=== PATIENT | male | born 1950 | race Caucasian/White ===

== ENCOUNTER 2017-06-17 15:46 | Emergency (ER) | payer MEDICAID ==
[2017-06-17 16:06] VITALS: BP 144/94
[2017-06-17] MEDS ORDERED: Bacitracin Oint 1 GM U/D Packet TOP ONE (16:35)
--- NOTE | 2017-06-17 16:40 | EDM.PDOC ---
ED HPI GENERAL MEDICAL PROBLEM - General Chief Complaint: Upper Extremity Injury/Pain Stated Complaint: FELL OFF LADDER Time Seen by Provider: 06/17/17 16:30 Source of Information: Reports: Patient History Limitations: Reports: No Limitations - History of Present Illness INITIAL COMMENTS - FREE TEXT/NARRATIVE: 66-year-old male was standing on a ladder cleaning out an air duct when he fell off striking the right side of his head on the ground and sustaining a left shoulder injury. He did not lose consciousness, he has an abrasion on his nose but a laceration over his right eyebrow he is concerned about. He also has some soreness in the deep left shoulder to movement. No other injury. No shortness of breath, chest wall pain, back pain, or other extremity injury. Onset: Sudden Duration: Hour(s): (Within the last few hours) Location: Reports: Face, Upper Extremity, Left Severity: Moderate Associated Symptoms: Denies: Fever/Chills, Headaches, Nausea/Vomiting, Syncope Left Shoulder Pain Score (Numeric/FACES): 5 - Related Data Allergies Allergy/AdvReac Type Severity Reaction Status Date / Time No Known Allergies Allergy Verified 06/17/17 16:15 Home Meds: Home Meds NK [No Known Home Meds] 12/22/14 [History] Past Medical History HEENT History: Reports: Hard of Hearing - Infectious Disease History Infectious Disease History: Reports: Chicken Pox, Measles, Mumps - Past Surgical History GI Surgical History: Reports: Hernia, Inguinal Musculoskeletal Surgical History: Reports: Hip Replacement Social & Family History - Tobacco Use Smoking Status *Q: Former Smoker Years of Tobacco use: 20 Packs/Tins Daily: 0.5 Used Tobacco, but Quit: Yes Month Tobacco Last Used: quit 40 years ago Second Hand Smoke Exposure: No - Caffeine Use Caffeine Use: Reports: Coffee - Alcohol Use Days Per Week of Alcohol Use: 0 Number of Drinks Per Day: 1 Total Drinks Per Week: 0 - Recreational Drug Use Recreational Drug Use: No Review of Systems - Review of Systems Review Of Systems: See Below Eyes: Reports: Other (No visual change) Respiratory: Denies: Shortness of Breath Cardiovascular: Denies: Chest Pain Musculoskeletal: Denies: Neck Pain, Leg Pain Neurological: Denies: Headache Psychiatric: Reports: No Symptoms ED EXAM, GENERAL - Physical Exam Exam: See Below Exam Limited By: No Limitations General Appearance: Alert, No Apparent Distress Eye Exam: Bilateral Eye: EOMI, PERRL Nose: Other (There is a superficial abrasion on the right side of the nose, no crepitus or active epistaxis) Head: Other (Patient has a 4 cm irregular laceration of the right eyebrow, into the subcutaneous tissue needing repair) Neck: Supple, Non-Tender Respiratory/Chest: No Respiratory Distress, Lungs Clear Cardiovascular: Regular Rate, Rhythm Extremities: Limited Range of Motion (Abduction is limited due to deep shoulder pain which can be reproduced with palpation of the anterior aspect of the proximal humerus. Clavicle and scapula are nontender.) Neurological: Alert, Oriented, Normal Cognition Psychiatric: Normal Affect, Normal Mood Skin Exam: Warm, Dry (Other than injuries to the nose and face, there are no other bruises or abrasions seen) Course - Vital Signs Last Recorded V/S: Last Vital Signs Temp 99.1 F 06/17/17 16:15 Pulse 99 06/17/17 16:15 Resp 20 06/17/17 16:15 BP 144/94 H 06/17/17 16:15 Pulse Ox 96 06/17/17 16:15 - Orders/Labs/Meds Orders: Active Orders 24 hr Category Date Time Status Shoulder Comp Lt [CR] Stat Exams 06/17/17 16:57 Taken Meds: Medications Discontinued Medications Generic Name Dose Route Start Last Admin Trade Name Marta PRN Reason Stop Dose Admin Bacitracin 1 dose 06/17/17 16:35 06/17/17 16:39 Bacitracin Oint 1 Gm TOP 06/17/17 16:36 1 dose ONETIME ONE Administration Lidocaine HCl 5 ml 06/17/17 16:35 06/17/17 16:40 Xylocaine-Mpf 1% INJECT 06/17/17 16:36 5 ml ONETIME ONE Administration - Re-Assessments/Exams Free Text/Narrative Re-Assessment/Exam: 06/17/17 16:39 The eyebrow laceration was anesthetized with 1% lidocaine. 06/17/17 17:01 After cleaning the laceration, 7 5-0 Ethilon sutures were used to close the wound. Topical bacitracin and a dressing was applied, the patient was then sent back for a shoulder x-ray of the left shoulder. 06/17/17 17:46 Shoulder x-ray was negative. Patient was given 10 hydrocodone to use for extra pain control over the next several days, encouraged to recheck if not improving satisfactorily and be seen in 6 days for suture removal. He can ice down sore areas for the next 2 days. Departure - Departure Time of Disposition: 18:01 Disposition: Home, Self-Care 01 Condition: Good Clinical Impression: Contusion, shoulder /upper arm Laceration of eyebrow Qualifiers: Encounter type: initial encounter Laterality: right Qualified Code(s): S01.111A - Laceration without foreign body of right eyelid and periocular area, initial encounter - Discharge Information Instructions: Laceration Care, Adult Referrals: PCP,None [Primary Care Provider] - Forms: ED Department Discharge Care Plan Goals: Ice sore areas for the next 48 hours, ibuprofen or naproxen will help with aches and pains and add stronger pain medication if needed especially when trying to rest. Staying active will help. Recheck in 6 days for suture removal, or sooner if concerns of infection or not improving satisfactorily. - My Orders Last 24 Hours: My Active Orders 06/17/17 16:57 Shoulder Comp Lt [CR] Stat - Assessment/Plan Last 24 Hours: My Active Orders 06/17/17 16:57 Shoulder Comp Lt [CR] Stat
--- NOTE | 2017-06-18 10:18 | CR ---
Shoulder Comp Lt HISTORY: Fall, pain COMPARISON: None FINDINGS: Mild arthrosis AC joint. Mild degenerative change in the glenohumeral joint with small apoorva inal osteophyte formation. No acute fracture or dislocation.
== END 2017-06-17 18:01 | disposition home or self-care (01) ==
LOC: JP.ED 15:46
DX: S01.111A Laceration without foreign body of right eyelid and periocular area, initial encounter (principal); S40.012A Contusion of left shoulder, initial encounter; Z87.891 Personal history of nicotine dependence; W18.00XA Striking against unspecified object with subsequent fall, initial encounter
CPT/HCPCS: 12013; 73030-26-LT; 73030-LT; 99283-25

== ENCOUNTER 2025-03-06 17:39 | Emergency (ER) | payer MEDICARE ==
[2025-03-06 17:52] VITALS: BP 161/88; PULSE 111
[2025-03-06] MEDS: Bacitracin Oint 1 GM U/D Packet TOP ONE (19:45)
== END 2025-03-06 19:48 | disposition home or self-care (01) ==
LOC: JP.ED 17:39
DX: S61.211A Laceration without foreign body of left index finger without damage to nail, initial encounter (principal); W31.2XXA Contact with powered woodworking and forming machines, initial encounter
CPT/HCPCS: 12002; 99283; J2003